=== PATIENT | male | born 1970 | race Caucasian/White ===

== ENCOUNTER 2018-11-09 22:08 | Emergency (ER) | payer MEDICAID, OTHER ==
[~2018-11-09] VITALS: Ht 177.8 cm; Wt 90.0 kg
[2018-11-09 22:58] VITALS: BP 144/94
== END 2018-11-09 23:01 | disposition home or self-care (01) ==
LOC: ER 22:09
DX: S21.239A Puncture wound without foreign body of unspecified back wall of thorax without penetration into thoracic cavity, initial encounter (principal); S00.31XA Abrasion of nose, initial encounter; Z02.89 Encounter for other administrative examinations; Z56.0 Unemployment, unspecified; W22.8XXA Striking against or struck by other objects, initial encounter; Y93.89 Activity, other specified; Y92.89 Other specified places as the place of occurrence of the external cause; Y99.8 Other external cause status
CPT/HCPCS: 99284